=== PATIENT | female | born 1995 | race Caucasian/White ===

== ENCOUNTER 2020-11-26 15:54 | Emergency (ER) | payer OTHER, SELFPAY ==
--- NOTE | ~2020-11-26 | CT_ITS ---
EXAMINATION: CT abdomen pelvis w con INDICATION: Abdominal pain TECHNIQUE: Computed tomographic images of the abdomen and pelvis were obtained after the administrati on of 100 cc of Omnipaque 350 intravenous contrast. The dose-length product (DLP) was 1506.40 mGy-cm. Automated exposure control and iterative reconstruction technique were employed. COMPARISON: None available FINDINGS: The lung bases are clear. The heart size is normal. The gallbladder is surgically absent. T he liver, spleen, pancreas, and adrenal glands are normal. The kidneys are unremarkable. No pathologi kati enlarged abdominal or pelvic lymph nodes are identified. There is no free intraperitoneal gas o r evidence of bowel obstruction. The appendix is normal. IMPRESSION: 1. No CT correlate for the patient's symptoms. Reviewed, dictated and finalized at location A.
--- NOTE | ~2020-11-26 | XR_ITS ---
EXAMINATION: XR hand LT min 3V INDICATION: Left hand swelling TECHNIQUE: Three views of the left hand are obtained. COMPARISON: None available FINDINGS: There is no fracture, dislocation, or subluxation. The bones, soft tissues, and joint space s are normal. IMPRESSION: 1. No acute osseous abnormality. Reviewed, dictated and finalized at location A.
[2020-11-26 16:07] VITALS: BP 130/60; PULSE 75; RESP 17; TEMP 36.8; O2SAT 100
[2020-11-26 17:44] VITALS: BP 137/106; PULSE 89; RESP 18; O2SAT 100
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
[2020-11-26 18:51] LABS: Basophils Absolute Auto 0.1 K/mm3 (0.0-0.1); Basophils Percent Auto 0.4 % (0.2-1.2); Eosinophils Absolute Auto 0.1 K/mm3 (0-0.3); Eosinophils Percent Auto 0.3 % (0-4.4); Hematocrit 40.6 % (37.0-47.0); Hemoglobin 13.8 g/dL (12.0-15.0); Immature Granulocyte Absolute 0.04 K/mm3 (0.00-0.031); Immature Granulocyte Percent A 0.3 % (0-0.5); Lymphocytes Absolute Auto 2.59 K/mm3 (0.9-3.2); Lymphocytes Percent Auto 17.5 % (18.3-44.2); Mean Corpuscular Hemoglobin 31.2 pg (26-34); Mean Corpuscular Volume 91.6 fl (80-100); Monocytes Absolute Auto 0.6 K/mm3 (0.1-0.6); Monocytes Percent Auto 4.1 % (2.6-8.5); Neutrophils Absolute Auto 11.4 K/mm3 (1.3-6.7); Neutrophils Percent Auto 77.4 % (45.5-73.1); Platelet Count Result 271 k/mm3 (150-375); Red Blood Count 4.43 M/mm3 (4.2-5.4); Red Cell Distribution Width 12.1 % (11.5-14.5); White Blood Count 14.8 K/mm3 (4.5-10.0)
[2020-11-26 18:57] LABS: Add Urine Microscopic? YES; Appearance Urine Cloudy (Clear); Bacteria Urine Trace /hpf; Bilirubin Urine Negative (Negative); Blood Urine Negative (Negative); Color Urine Yellow (Yellow); Glucose Urine UA Negative (Negative); Ketones Urine 1+ mg/dL (Negative); Leukocyte Esterase Ur Negative LEU/UL (Negative); Mucus Urine Rare /lpf; Nitrate Urine Negative (Negative); Protein Urine Negative (Negative); Specific Grav Ur 1.025 (1.001-1.035); Squamous Epithelial Cell Urine Few /hpf (Few); Urobilinogen Urine Negative mg/dL (<2.0); WBC Urine 0-3 /hpf
[2020-11-26 19:00] LABS: Lipase 76 U/L (23-300)
[2020-11-26 19:02] LABS: Alanine Aminotransferase 23 U/L (4-35); Albumin Level 4.4 g/dL (3.5-5.1); Alkaline Phosphatase 86 U/L (38-126); Anion Gap 9 mmol/L (8-16); Aspartate Amino Transferase 26 U/L (14-36); Bilirubin,Total 0.6 mg/dL (0.2-1.3); Blood Urea Nitrogen 13 mg/dL (7-17); Calcium 9.3 mg/dL (8.4-10.2); Carbon Dioxide 27 mmol/L (22-30); Chloride 102 mmol/L (98-107); Estimated CRCL calculation 114 ml/min; Estimated Glomerular Filt Rate > 60; Glucose 89 mg/dL (65-110); Sodium 138 mmol/L (137-145)
[2020-11-26 20:04] VITALS: BP 133/67; PULSE 78; RESP 18; O2SAT 99
[2020-11-26 20:40] VITALS: BP 133/67; PULSE 66; RESP 17; O2SAT 99
== END 2020-11-26 20:40 | disposition home or self-care (01) ==
PROVIDERS: Emergency Provider Emergency Medicine; PCP Family Medicine
DX: R10.30 Lower abdominal pain, unspecified (principal); S60.222A Contusion of left hand, initial encounter; V49.40XA Driver injured in collision with unspecified motor vehicles in traffic accident, initial encounter
CPT/HCPCS: 36415; 73130; 74177; 80053; 81001; 81025; 83690; 85025; 99284; Q9967